=== PATIENT | male | born 1960 | race Caucasian/White ===

== ENCOUNTER 2017-02-16 18:22 | Emergency (ER) | payer OTHER ==
[~2017-02-16] VITALS: Ht 170.2 cm; Wt 88.0 kg
[~2017-02-16 18:22] MED LIST: LANS30CA16 PO
[2017-02-16 18:58] VITALS: BP 148/104
[2017-02-16 19:20] LABS: BLOOD UREA NITROGEN 24 mg/dL (7-18)
[2017-02-16 19:24] LABS: ASPARTATE AMINO TRANSFERASE 30 U/L (15-37)
[2017-02-16 19:57] LABS: HIV 1&2 ANTIBODY SCREEN Nonreactive (Nonreactive); HIV-1 p24 ANTIGEN Nonreactive (Nonreactive)
[2017-02-16 20:06] LABS: HEP B SURF. AB 183.7 mIU/mL (0.0-10.0)
[2017-02-16 20:45] LABS: HEPATITIS C VIRUS ANTIBODY Nonreactive (Nonreactive)
== END 2017-02-16 19:29 | disposition home or self-care (01) ==
LOC: ED 18:43
DX: Z77.21 Contact with and (suspected) exposure to potentially hazardous body fluids (principal); K21.9 Gastro-esophageal reflux disease without esophagitis
CPT/HCPCS: 36415; 80053; 85025; 86703; 86705; 86706; 86803; 87340; 87899; 99284; G0435

== ENCOUNTER 2020-12-15 12:39 | Observation (INO) | payer OTHER ==
[~2020-12-15] VITALS: Ht 170.2 cm; Wt 99.7 kg
[~2020-12-15 12:39] MED LIST changes: -LANS30CA16 PO; +LANS30CA60 PO
--- NOTE | 2020-12-15 12:44 | NUR ---
CODE [facility] PAGED @0595 CANCELLED CODE NEURO PER @4080
--- NOTE | 2020-12-15 12:57 | NUR ---
PT BIB EMS FOR ACUTE ONSET DIZZINESS AND SLURRED SPEECH AT 1100 TODAY. [facility] CALLED. PER EMS THEY DID NOT NOTICE OR SEE ANY SLURRED SPEECH ON ARRIVAL - NONE NOTICED HERE EITHER. [facility] CALLED OFF BY MD PROVIDER. NEURO EXAM NEGATIVE. PT REPORTS "IM FEELING BETTER NOW". PT RESTING IN [facility]. CONNECTED TO ALL MONITORING EQUIPMENT.
[2020-12-15] MEDS ORDERED: SODIUM CHLORIDE 0.9% 1,000ML IVBOLUS ONE (13:00)
[2020-12-15] MEDS ORDERED: SODIUM CHLORIDE FLUSH 10ML SYR IVF ONE (13:00)
[2020-12-15] MEDS ORDERED: ASPIRIN 81 MG TABLET CHEW ONE (13:00)
[2020-12-15] MEDS ORDERED: PLEASE ENTER HEIGHT AND WEIGHT MC SCH (13:00)
[2020-12-15] MEDS ORDERED: ASPIRIN 81 MG TABLET CHEW PO ONE (13:00)
--- NOTE | 2020-12-15 13:05 | NUR ---
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
[2020-12-15 13:12] LABS: BASOPHILS % (AUTO) 2 % (0-1); EOSINOPHILS % (AUTO) 3 % (1-7); LYMPHOCYTES % (AUTO) 24 % (22-44); MEAN CORPUSCULAR HEMOGLOBIN 31.2 pg (27.5-34.5); MEAN CORPUSCULAR HGB CONC 34.9 g/dL (33.2-36.2); MEAN PLATELET VOLUME 7.7 fL (7.4-10.4); MONOCYTES % (AUTO) 8 % (2-9); NEUTROPHILS % (AUTO) 63 % (42-75); PLATELET COUNT 217 x10^3/uL (130-400); RED CELL DISTRIBUTION WIDTH 13.3 % (9.4-14.8)
[2020-12-15 13:13] LABS: MD NO
--- NOTE | 2020-12-15 13:17 | NUR ---
RECEIVED REPORT FROM CALLY DOAN. ASSUMING CARE AT THIS TIME.
[2020-12-15 13:21] LABS: ALBUMIN 3.9 g/dL (3.4-5.0); ANION GAP 3 mmol/L (5-15); CALCIUM 8.9 mg/dL (8.5-10.1); CHLORIDE 104 mmol/L (98-107); CREATININE 1.29 mg/dL (0.7-1.3)
--- NOTE | 2020-12-15 13:21 | NUR ---
PT RESTING COMFORTABLY ON GURNEY. KAILYN. FAMILY AT BEDSIDE. AWAITING CT.
[2020-12-15 13:25] LABS: TROPONIN I < 0.015 ng/mL (0.000-0.045)
--- NOTE | 2020-12-15 13:53 | NUR ---
PT AT CT. PT PREVIOUSLY AMBULATED TO RESTOOM WITH STEADY GAIT.
[2020-12-15] MEDS ORDERED: OMNIPAQUE 350 MG/ML, 75ML BOTTLE ONE (13:55)
[2020-12-15] MEDS ORDERED: LORazepam 2 MG/ML, 1ML IVPush ONE (15:00)
[2020-12-15] MEDS ORDERED: LORazepam 2 MG/ML, 1ML ONE (15:30)
--- NOTE | 2020-12-15 15:34 | NUR ---
LINE APPLIANCE ASSEMBLER PER MAR.
--- NOTE | 2020-12-15 16:31 | NUR ---
HOSPITALIST AT BEDSIDE
[2020-12-15] MEDS ORDERED: ENALAPRILAT 1.25 MG/ML, 2ML IVPush PRN (17:00)
[2020-12-15] MEDS ORDERED: ONDANSETRON 2MG/ML, 2ML IVPush PRN (17:00)
[2020-12-15] MEDS ORDERED: ONDANSETRON ODT 4 MG PO PRN (17:00)
[2020-12-15] MEDS ORDERED: ACETAMINOPHEN 325 MG TABLET PO PRN (17:00)
[2020-12-15] MEDS ORDERED: IBUPROFEN 600 MG TABLET PO PRN (17:00)
--- NOTE | 2020-12-15 17:11 | NUR ---
REPORT GIVEN TO LENIN DOAN. PT RTG TO ROOM 510-1
[2020-12-15 17:23] LABS: TROPONIN I < 0.015 ng/mL (0.000-0.045)
[2020-12-15 17:49] VITALS: BP 135/89
[2020-12-15 19:00] LABS: MICROSCOPIC NOT IND
[2020-12-15] MEDS: SODIUM CHLORIDE 0.9% 1,000 ML IV SCH (19:00)
[2020-12-15] MEDS ORDERED: TRIA1CAP3 PO (20:00)
[2020-12-15] MEDS ORDERED: DIAZ2TAB3 PO (20:02)
[2020-12-15 20:08] VITALS: BP 121/83
[2020-12-15 20:10] VITALS: BP 158/95
[2020-12-15] MEDS ORDERED: LEVO5TAB29 PO (20:10)
[2020-12-15 20:11] VITALS: BP 142/91
[2020-12-15] MEDS ORDERED: MELATONIN 5 MG TABLET PO PRN (21:00)
[2020-12-15 23:10] LABS: TROPONIN I < 0.015 ng/mL (0.000-0.045)
[2020-12-16] MEDS: SODIUM CHLORIDE 0.9% 1,000 ML IV SCH (00:50)
[2020-12-16 01:08] VITALS: BP 119/80
[2020-12-16 05:07] LABS: BASOPHILS % (AUTO) 1 % (0-1); EOSINOPHILS % (AUTO) 4 % (1-7); LYMPHOCYTES % (AUTO) 35 % (22-44); MEAN CORPUSCULAR HEMOGLOBIN 31.1 pg (27.5-34.5); MEAN CORPUSCULAR HGB CONC 34.4 g/dL (33.2-36.2); MEAN PLATELET VOLUME 8.3 fL (7.4-10.4); MONOCYTES % (AUTO) 7 % (2-9); NEUTROPHILS % (AUTO) 54 % (42-75); PLATELET COUNT 194 x10^3/uL (130-400); RED CELL DISTRIBUTION WIDTH 13.4 % (9.4-14.8)
[2020-12-16 05:09] LABS: MD NO
[2020-12-16 05:15] LABS: ANION GAP 4 mmol/L (5-15); CALCIUM 8.5 mg/dL (8.5-10.1); CHLORIDE 108 mmol/L (98-107); CREATININE 1.23 mg/dL (0.7-1.3)
[2020-12-16] MEDS ORDERED: OMEPRAZOLE 10 MG CAPSULE.DR PO SCH (06:00)
[2020-12-16 08:37] VITALS: BP 135/85
[2020-12-16] MEDS ORDERED: DIAZEPAM 2 MG TABLET PO SCH (09:00)
[2020-12-16] MEDS ORDERED: TRIAMTERENE-HCTZ 37.5/25 MG TABLET PO SCH (09:00)
[2020-12-16] MEDS ORDERED: IBUPROFEN 200 MG TABLET ONE (09:25)
[2020-12-16] MEDS ORDERED: DIAZEPAM 5 MG TABLET ONE (09:27)
[2020-12-16 09:48] LABS: FREE T4 (FREE THYROXINE) 0.94 ng/dL (0.76-1.46)
[2020-12-16 13:27] VITALS: BP 132/88
== END 2020-12-16 17:45 | disposition home or self-care (01) ==
LOC: ED 14:21 → SUATTDRO 16:16 → INTOOBSV 16:16 → EDIP 16:16 → 5SO 17:24
PROVIDERS: ADMIT Hospitalist; ATTEND Family Medicine
DX: R55 Syncope and collapse (principal); H81.09 Meniere's disease, unspecified ear; R51.9 Headache, unspecified; K21.9 Gastro-esophageal reflux disease without esophagitis; K29.50 Unspecified chronic gastritis without bleeding; R09.02 Hypoxemia; I25.3 Aneurysm of heart; Q21.1 Atrial septal defect; Z96.652 Presence of left artificial knee joint; Z79.899 Other long term (current) drug therapy; Z87.39 Personal history of other diseases of the musculoskeletal system and connective tissue
CPT/HCPCS: 36415; 71275; 80048; 81003; 82040; 82306; 82607; 84439; 84443; 84481; 84484; 85025; 93005; 93306; 93356; 96361; 96374; G0378; J2060; J7030; Q9967

== ENCOUNTER 2021-04-05 18:00 | Emergency (ER) | payer OTHER ==
[~2021-04-05] VITALS: Ht 170.2 cm; Wt 95.5 kg
[~2021-04-05 18:00] MED LIST changes: +DIAZ2TAB3 PO; +LEVO5TAB29 PO; +TRIA1CAP3 PO
--- NOTE | 2021-04-05 18:23 | NUR ---
[employer] CONSULTANT: PT TO ROOM FROM LOBBY, VIA W/C
[2021-04-05] MEDS ORDERED: HYDROcodone/APAP 5/325 TABLET ONE (18:59)
[2021-04-05] MEDS ORDERED: HYDROcodone/APAP 5/325 TABLET PO ONE (19:00)
--- NOTE | 2021-04-05 19:04 | NUR ---
PT MEDICATED FOR PAIN PER EMAR, AND PROVIDED ICE WELL. ERP TO ORDER SPLINT
[2021-04-05 19:42] VITALS: BP 143/74
== END 2021-04-05 19:48 | disposition home or self-care (01) ==
LOC: ED 19:30
DX: S92.324A Nondisplaced fracture of second metatarsal bone, right foot, initial encounter for closed fracture (principal); S97.81XA Crushing injury of right foot, initial encounter; K21.9 Gastro-esophageal reflux disease without esophagitis; X58.XXXA Exposure to other specified factors, initial encounter; Y93.89 Activity, other specified; Y92.009 Unspecified place in unspecified non-institutional (private) residence as the place of occurrence of the external cause; Y99.8 Other external cause status
CPT/HCPCS: 29515; 99283

== ENCOUNTER → 2021-04-09 | Outpatient (CLI) | payer OTHER | END | disposition home or self-care (01) | LOC: CFH 12:24 | PROVIDERS: ATTEND Orthopaedic Surgery | DX: S92.321A Displaced fracture of second metatarsal bone, right foot, initial encounter for closed fracture (principal); X58.XXXA Exposure to other specified factors, initial encounter; Y93.89 Activity, other specified; Y92.89 Other specified places as the place of occurrence of the external cause; Y99.8 Other external cause status ==